=== PATIENT | female | born 1990 | race Two or more races ===

== ENCOUNTER 2021-01-14 14:48 | Emergency (ER) | payer MEDICAID ==
[~2021-01-14] VITALS: Ht 162.6 cm; Wt 70.5 kg
[2021-01-14 16:07] VITALS: BP 129/72
[2021-01-14] MEDS ORDERED: TraMADol HCL 50 MG TABLET PO ONE (16:15)
== END 2021-01-14 17:32 | disposition home or self-care (01) ==
LOC: EMS 14:48
DX: S93.602A Unspecified sprain of left foot, initial encounter (principal); W01.0XXA Fall on same level from slipping, tripping and stumbling without subsequent striking against object, initial encounter; Y93.89 Activity, other specified; Y92.89 Other specified places as the place of occurrence of the external cause; Y99.8 Other external cause status
CPT/HCPCS: 29515; 99284